=== PATIENT | female | born 1950 | race Caucasian/White ===

== ENCOUNTER 2017-01-28 19:28 | Emergency (ER) | payer OTHER, MEDICARE ==
[~2017-01-28] VITALS: Ht 162.6 cm; Wt 69.5 kg
--- NOTE | ~2017-01-28 | OR ---
Unit #: [id number] #: [id number] Patient: MANDY KYLE [id number] [address] [place], [place] [address] [id number] MR#: [id number] NAME: MANDY KYLE ROOM: Date of Procedure: 01/28/2017 Admission Date: 01/28/2017 Surgeon: Olman Huffman D.M.D., [facility] : 1950 Attending Physician: Candice Bryson M.D. Primary Care Physician: Neelam Primary Care Physician PROCEDURE OPERATIVE NOTE PREOP DIAGNOSIS Laceration to the ventral surface of the tongue in the area of a hereditary hemangioma. POSTOPERATIVE DIAGNOSIS Laceration to the ventral surface of the tongue in the area of a hereditary hemangioma. SURGEON Olman Huffman M.D. ANESTHESIA Local anesthesia with 1% lidocaine with epinephrine. 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 She proceeded to do this and slowed the bleeding down, then after eating she traumatized the area and it began to actively bleed again. This time it was profuse. She reported to the emergency room with complaints of mouth bleeding, lacerated tongue. On examination the emergency room physician attempted to apply pressure to slow down the bleeding. He attempted silver nitrate to cause hemostasis, but was unable to stop the bleeding. Therefore, oral surgery was consulted for evaluation and treatment. Upon examination the patient had some profuse bleeding from the midline area of the ventral surface of the tongue. This area was a capillary hemangioma the patient traumatized. I explained to Ms. Kyle that this will need to be sutured to stop the bleeding. She consented to the procedure. PROCEDURE The patient was given approximately 3 cc of 1% lidocaine with epinephrine to anesthetize the area and also to assist with slowing down the bleeding. A 3.0 Vicryl suture was then placed in the [id number] style. After placing the suture the bleeding immediately stopped. The patient tolerated the procedure well. There were no complications. She will follow up with her MJoseD. Unit #: [id number] #: [id number] Patient: MANDY KYLE Dictated by... Olman Huffman D.M.D., [facility] TRS/gz TD: 01/29/2017 12:33 JOB #: [id number] CC: Olman Huffman M.D. PROCEDURE OPERATIVE NOTE Page 1 of 1 X Olman Huffman DMD PROCEDURE OPERATIVE NOTE
[~2017-01-28 19:28] MED LIST: ACETAMINOPHEN325 MG PO; ANEXSIA 5/325 M1 TA1 PO; ASPIRIN PO; CYANOCOBAL1000 MCG/M INJ; FERRO-TIME325 MG PO; FOLIC ACID1 MG PO; HYDROCODON-ACE1 EACH PO; KEFLEX PO; KEFLEX500 M1 PO; LASIX20 MG PO; LOPRESSOR PO; LORTAB 5/500 TA1 TA2 PO; MAPAP325 M1 PO; NEURONTIN100 MG PO; NO MEDICATIONS; PROTONIX PO
[2017-01-28 20:20] LABS: BASOPHIL% 0.8 % (0-2.5); EOSINOPHIL# 0.2 X10e3 (0-0.7); EOSINOPHIL% 3.7 % (0.0-7.0); HEMATOCRIT 39.3 % (35.0-45.0); HEMOGLOBIN 12.7 gm/dL (12.0-16.0); LYMPHOCYTE# 0.8 X10e3 (1.0-3.5); LYMPHOCYTE% 18.4 % (17.0-45.0); MEAN CELL VOLUME 92.2 FL (83-96); MEAN CORPUSCULAR HEMOGLOBIN 29.9 PG (28-34); MEAN CORPUSCULAR HGB CONC 32.4 g/dL (30-36); MEAN PLATELET VOLUME 8.5 FL (6.5-11.5); MONOCYTE# 0.6 X10e3 (0-1.0); MONOCYTE% 12.9 % (3.0-12.0); NEUTROPHIL# 2.9 X10e3 (1.5-7.1); NEUTROPHIL% 64.2 % (40-75); PLATELET COUNT 145 X10e3 (140-420); RED BLOOD COUNT 4.27 X10e (3.90-5.30); RED CELL DISTRIBUTION WIDTH 22.5 % (11.0-15.5); WHITE BLOOD COUNT 4.5 X10e3 (4.0-10.5)
[2017-01-28 20:21] LABS: DIFF IND YES
[2017-01-28 20:29] LABS: PROTHROMBIN TIME (PATIENT) 11.2 SECONDS (10.0-11.7)
[2017-01-28 20:38] LABS: PLATELET ESTIMATE NORMAL (NORMAL)
[2017-01-28 20:39] LABS: BUN/CREATININE RATIO 32.5; CALCIUM SERUM 8.4 mg/dL (8.4-10.2); CREATININE SERUM 0.4 mg/dL (0.6-1.4); GLOM FILT RATE Estimated 109.3 mL/min (>60); POTASSIUM 3.5 mmol/L (3.5-5.1)
== END 2017-01-28 22:30 | disposition home or self-care (01) ==
LOC: CED 19:28
PROVIDERS: Emergency Medicine
DX: S09.93XA Unspecified injury of face, initial encounter (principal); Z90.710 Acquired absence of both cervix and uterus; Z90.49 Acquired absence of other specified parts of digestive tract; Z79.899 Other long term (current) drug therapy; Z88.0 Allergy status to penicillin; X58.XXXA Exposure to other specified factors, initial encounter; Y92.89 Other specified places as the place of occurrence of the external cause
CPT/HCPCS: 36415; 80048; 85025; 85610; 96361; 96374; 96375; 96376; 99284; J2270; J2310; J2405